=== PATIENT | male | born 1975 | race Caucasian/White ===

== ENCOUNTER 2022-10-02 10:50 | Outpatient (CLI) | payer OTHER, SELFPAY ==
[2022-10-02 22:29] LABS: Albumin* 4.8 g/dL (3.3-5.0); Chloride* 105 mmol/L (96-114)
[2022-10-02 22:30] LABS: Potassium* 4.7 mmol/L (3.6-5.1); Sodium* 140 mmol/L (135-149)
[2022-10-02 22:32] LABS: Aspartate Amino Transferase* 27 U/L (12-35); Blood Urea Nitrogen* 21 mg/dL (5-24); Carbon Dioxide* 29 mmol/L (20-32); Cholesterol* 208 mg/dL (90-199); Creatinine* 0.9 mg/dL (0.5-1.5); Estimated Glomerular Filt Rate 105 ml/min; Total Protein* 7.7 g/dL (6.0-8.3); Triglycerides* 46 mg/dL (40-149)
[2022-10-02 22:33] LABS: Alanine Aminotransferase* 21 U/L (4-50); Alkaline Phosphatase* 63 U/L (40-150); Calcium* 9.7 mg/dL (8.4-10.6); HDL Cholesterol* 73 mg/dL (>=40); LDL Cholesterol Calculated 126 mg/dL (<100)
[2022-10-02 22:47] LABS: Glucose* 85 mg/dL (60-115)
[2022-10-02 22:55] LABS: PSA Screen* 1.63 ng/mL (0.10-4.00)
== END 2022-10-02 10:51 | disposition home or self-care (01) ==
PROVIDERS: PCP Physician Assistant Medical; Visit Provider Physician Assistant Medical
DX: Z00.00 Encounter for general adult medical examination without abnormal findings (principal); B00.1 Herpesviral vesicular dermatitis; Z13.6 Encounter for screening for cardiovascular disorders; Z12.5 Encounter for screening for malignant neoplasm of prostate
CPT/HCPCS: 80053; 80061; 84153

== ENCOUNTER 2022-11-13 08:09 | Outpatient (CLI) | payer OTHER, SELFPAY | END 2022-11-13 08:10 | disposition home or self-care (01) | LOC: OP CLINIC 08:10 | PROVIDERS: PCP Physician Assistant Medical; Visit Provider Surgery | DX: Z12.11 Encounter for screening for malignant neoplasm of colon (principal) | CPT/HCPCS: 45378; 99153; J2250; J3010 ==

== ENCOUNTER 2024-07-14 19:14 | Outpatient (CLI) | payer OTHER, SELFPAY | END 2024-07-14 19:15 | disposition home or self-care (01) | LOC: NFLDREF 07-19 16:39 | PROVIDERS: PCP Physician Assistant Medical; Referring Provider Physician Assistant Medical; Visit Provider Nurse Practitioner Family | DX: Z12.5 Encounter for screening for malignant neoplasm of prostate (principal); M54.50 Low back pain, unspecified | CPT/HCPCS: G0103 ==